=== PATIENT | female | born 1970 | race Caucasian/White ===

== ENCOUNTER 2019-10-16 10:15 | Emergency (ER) | payer MEDICAID ==
[~2019-10-16] VITALS: Ht 162.6 cm; Wt 97.3 kg
[2019-10-16 10:22] VITALS: BP 112/74
--- NOTE | 2019-10-16 10:27 | NUR ---
WAIT AT LOBBY.
--- NOTE | 2019-10-16 11:04 | NUR ---
Patient ambulated to bed 7. RN evaluating patient at bedside.
--- NOTE | 2019-10-16 11:30 | NUR ---
Dr. Granados is evaluating the patient at bedside.
[2019-10-16] MEDS ORDERED: HYDROcodone/APAP 5/325 MG 1 TAB TAB PO ONE (11:40)
[2019-10-16] MEDS ORDERED: ONDANSETRON 4 MG ODT PO ONE (11:40)
[2019-10-16 12:32] LABS: APPEARANCE,URINE SL CLOUDY (CLEAR); BILIRUBIN,URINE NEGATIVE (NEGATIVE); BLOOD, URINE TRACE-L (NEGATIVE); COLOR,URINE AMBER (YELLOW); LEUKOCYTE ESTERASE ,URINE NEGATIVE (NEGATIVE); NITRITE, URINE NEGATIVE (NEGATIVE); UGLUCOSE NEGATIVE (NEGATIVE)
[2019-10-16 12:39] LABS: BASOPHILS % (AUTO) 0.6 % (0.0-2.0); EOSINOPHILS # (AUTO) 0.1 K/uL (0-0.4); EOSINOPHILS % (AUTO) 1.5 % (0.0-4.0); HEMATOCRIT 37.7 % (36-48); HEMOGLOBIN 11.7 g/dL (12.0-16.0); LYMPHOCYTES # (AUTO) 2.4 K/uL (2.5-16.5); LYMPHOCYTES % (AUTO) 31.5 % (20.5-51.1); MEAN CORPUSCULAR HEMOGLOBIN 22 pg (27-31); MEAN CORPUSCULAR HGB CONC 31 g/dL (33-37); MEAN CORPUSCULAR VOLUME 71.3 fL (80-94); MONOCYTES # (AUTO) 0.5 K/uL (0.8-1.0); MONOCYTES % (AUTO) 6.1 % (1.7-9.3); NEUTROPHILS # (AUTO) 4.5 K/uL (1.8-7.7); NEUTROPHILS % (AUTO) 60.3 % (42.2-75.2); PLATELET COUNT (AUTO) 223 K/uL (140-450); RED BLOOD CELL COUNT(AUTO) 5.29 MIL/uL (4.20-5.40); RED CELL DISTRIBUTION WIDTH 17.5 % (11.6-13.7); WHITE BLOOD COUNT (AUTO) 7.5 K/uL (4.8-10.8)
[2019-10-16 12:56] LABS: ALBUMIN 3.4 g/dL (3.4-5.0); ANION GAP 10.2 (8-16); CARBON DIOXIDE 28.3 mmol/L (21-32); CREATININE 0.7 mg/dL (0.6-1.3); POTASSIUM 3.5 mmol/L (3.5-5.1); TOTAL BILIRUBIN 0.4 mg/dL (0.0-1.0)
[2019-10-16 13:32] LABS: RBC,URINE 0-5 /HPF (0-5); WBC,URINE 0-5 /HPF (0-5)
--- NOTE | 2019-10-16 13:44 | NUR ---
PT AMB TO RESTROOM WITH STEADY GAIT
--- NOTE | 2019-10-16 13:49 | NUR ---
SECOND URINE COLLECTED
--- NOTE | 2019-10-16 14:40 | NUR ---
Stable. VSS. Now denies pain. Ultrasound completed. Awaiting results.
--- NOTE | 2019-10-16 16:07 | NUR ---
IV removed, catheter intact and site benign. Applied folded 4x4 gauze and tape to stop bleeding.
[2019-10-16 16:08] VITALS: BP 119/70
--- NOTE | 2019-10-16 16:08 | NUR ---
Patient discharged with v/s stable. Written and verbal after care instructions given and explained. Patient alert, oriented and verbalized understanding of instructions. Ambulatory with steady gait. All questions addressed prior to discharge. ID band removed. Patient advised to follow up with PMD. Rx of NORCO ZOFRAN given. Patient educated on indication of medication including possible reaction and side effects. Opportunity to ask questions provided and answered.
== END 2019-10-16 16:08 | disposition home or self-care (01) ==
LOC: MED 10:15
DX: K80.20 Calculus of gallbladder without cholecystitis without obstruction (principal); Z88.1 Allergy status to other antibiotic agents
CPT/HCPCS: 36415; 76705; 80053; 81001; 81025; 83690; 85025; 87086; 99284; Q0092; Q0162

== ENCOUNTER 2022-09-06 18:06 | Emergency (ER) | payer OTHER ==
[~2022-09-06] VITALS: Ht 165.1 cm; Wt 101.6 kg
[2022-09-06 18:32] VITALS: BP 159/92
[2022-09-06 19:03] LABS: APPEARANCE,URINE CLEAR (CLEAR); BILIRUBIN,URINE NEGATIVE (NEGATIVE); BLOOD, URINE TRACE-I (NEGATIVE); COLOR,URINE YELLOW (YELLOW); LEUKOCYTE ESTERASE ,URINE NEGATIVE (NEGATIVE); NITRITE, URINE NEGATIVE (NEGATIVE); PH,URINE 6.5 (5.0-9.0); UGLUCOSE NEGATIVE (NEGATIVE)
[2022-09-06] MEDS ORDERED: KETOROLAC 30 MG/ML VIAL IVP ONE (19:15)
[2022-09-06] MEDS ORDERED: NACL 0.9% 1,000 ML IV SCH (19:15)
[2022-09-06] MEDS ORDERED: ONDANSETRON 4 MG/2 ML VIAL IVP ONE (19:15)
[2022-09-06 19:25] LABS: RBC,URINE 0-5 /HPF (0-5)
[2022-09-06 19:30] LABS: BASOPHILS % (AUTO) 0.3 % (0.0-2.0); EOSINOPHILS # (AUTO) 0.3 K/uL (0-0.4); EOSINOPHILS % (AUTO) 3.7 % (0.0-4.0); HEMATOCRIT 43.1 % (36-48); HEMOGLOBIN 14.2 g/dL (12.0-16.0); LYMPHOCYTES # (AUTO) 2.4 K/uL (2.5-16.5); LYMPHOCYTES % (AUTO) 26.3 % (20.5-51.1); MEAN CORPUSCULAR HEMOGLOBIN 28 pg (27-31); MEAN CORPUSCULAR HGB CONC 33 g/dL (33-37); MEAN CORPUSCULAR VOLUME 84.8 fL (80-94); MONOCYTES # (AUTO) 0.7 K/uL (0.8-1.0); MONOCYTES % (AUTO) 7.8 % (1.7-9.3); NEUTROPHILS # (AUTO) 5.6 K/uL (1.8-7.7); NEUTROPHILS % (AUTO) 61.9 % (42.2-75.2); PLATELET COUNT (AUTO) 219 K/uL (140-450); RED BLOOD CELL COUNT(AUTO) 5.09 MIL/uL (4.20-5.40); RED CELL DISTRIBUTION WIDTH 13.8 % (11.6-13.7); WHITE BLOOD COUNT (AUTO) 9.1 K/uL (4.8-10.8)
[2022-09-06 19:51] LABS: ALBUMIN 3.4 g/dL (3.4-5.0); ANION GAP 10.7 (8-16); CREATININE 0.7 mg/dL (0.6-1.3); POTASSIUM 3.7 mmol/L (3.5-5.1); TOTAL BILIRUBIN 0.4 mg/dL (0.0-1.0)
--- NOTE | 2022-09-06 19:52 | NUR ---
Patient A/Ox4, lying in bed, chest rise and fall symmetrical, no s/s of distress, patient on monitor.
[2022-09-06] MEDS ORDERED: METOCLOPRAMIDE 10 MG/2 ML INJ VIAL IVP ONE (20:40)
--- NOTE | 2022-09-06 21:45 | NUR ---
Patient A/Ox4, lying in bed, chest rise and fall symmetrical, no s/s of distress, patient on monitor.
--- NOTE | 2022-09-06 22:00 | NUR ---
Patient A/Ox4, lying in bed, chest rise and fall symmetrical, no s/s of distress, patient on monitor.
[2022-09-06] MEDS ORDERED: ONDA-188 PO (22:15)
[2022-09-06] MEDS ORDERED: LEVO750T75 PO (22:15)
[2022-09-06] MEDS ORDERED: IBUP-2218 PO (22:15)
[2022-09-06] MEDS ORDERED: levoFLOXacin 750 MG TAB PO ONE (22:20)
[2022-09-06 22:29] VITALS: BP 122/74
== END 2022-09-06 22:31 | disposition home or self-care (01) ==
LOC: MED 18:06
DX: R10.11 Right upper quadrant pain (principal); Z88.8 Allergy status to other drugs, medicaments and biological substances
CPT/HCPCS: 36415; 74176; 80053; 81001; 81025; 83690; 85025; 87086; 96361; 96374; 96375; 99284; J1885; J2405; J2765

== ENCOUNTER 2022-09-18 10:23 | Inpatient (IN) | payer OTHER ==
[~2022-09-18] VITALS: Ht 162.6 cm; Wt 97.5 kg
[~2022-09-18 10:23] MED LIST: IBUP-2218 PO; LEVO750T75 PO; ONDA-188 PO
[2022-09-18 10:27] VITALS: BP 126/78
--- NOTE | 2022-09-18 10:30 | NUR ---
52F PRESENTS TO ED WITH C/O LLQ ABD PAIN AND N/V SINCE THIS MORNING. PT REPORTS A CONSTANT, ACHING LIKE, 8/10 PAIN; 1 EPISODE OF VOMITING TODAY. PT REPORTS TAKING 600MG IBUPROFEN AT 0600 TODAY AND PAIN STARTED AT 0800. PT STATES SHE WAS SEEN 09/06/22 IN ED, DX WITH RIGHT INFECTED KIDNEY. PT DENIES DIARRHEA, FEVERS OR CHILLS.
[2022-09-18] MEDS ORDERED: KETOROLAC 15 MG/ML VIAL IM ONE (11:10)
[2022-09-18 11:13] LABS: BASOPHILS % (AUTO) 0.4 % (0.0-2.0); EOSINOPHILS # (AUTO) 0.2 K/uL (0-0.4); EOSINOPHILS % (AUTO) 2.4 % (0.0-4.0); HEMOGLOBIN 14.9 g/dL (12.0-16.0); LYMPHOCYTES # (AUTO) 1.2 K/uL (2.5-16.5); LYMPHOCYTES % (AUTO) 12.8 % (20.5-51.1); MEAN CORPUSCULAR HEMOGLOBIN 29 pg (27-31); MEAN CORPUSCULAR HGB CONC 34 g/dL (33-37); MEAN CORPUSCULAR VOLUME 84.5 fL (80-94); MONOCYTES # (AUTO) 0.7 K/uL (0.8-1.0); MONOCYTES % (AUTO) 6.8 % (1.7-9.3); NEUTROPHILS # (AUTO) 7.4 K/uL (1.8-7.7); NEUTROPHILS % (AUTO) 77.6 % (42.2-75.2); PLATELET COUNT (AUTO) 296 K/uL (140-450); RED CELL DISTRIBUTION WIDTH 13.8 % (11.6-13.7); WHITE BLOOD COUNT (AUTO) 9.6 K/uL (4.8-10.8)
[2022-09-18 11:15] LABS: APPEARANCE,URINE CLEAR (CLEAR); BILIRUBIN,URINE 2+ (NEGATIVE); BLOOD, URINE 1+ (NEGATIVE); COLOR,URINE YELLOW (YELLOW); LEUKOCYTE ESTERASE ,URINE NEGATIVE (NEGATIVE); NITRITE, URINE NEGATIVE (NEGATIVE); PH,URINE 5.5 (5.0-9.0); UGLUCOSE NEGATIVE (NEGATIVE)
--- NOTE | 2022-09-18 11:22 | NUR ---
PT TAKEN TO ULTRASOUND VIA W/C.
[2022-09-18 11:28] LABS: OTHER CASTS, URINE None Seen /LPF (None Seen); WBC,URINE 0-5 /HPF (0-5)
[2022-09-18 11:33] LABS: ALBUMIN 3.4 g/dL (3.4-5.0); ANION GAP 12.5 (8-16); CARBON DIOXIDE 28.3 mmol/L (21-32); POTASSIUM 3.8 mmol/L (3.5-5.1); TOTAL BILIRUBIN 2.5 mg/dL (0.0-1.0)
--- NOTE | 2022-09-18 13:21 | NUR ---
pt amb to ch c
[2022-09-18] MEDS ORDERED: MORPHINE SULFATE 4 MG/ML SYR IVP ONE (13:40)
--- NOTE | 2022-09-18 14:32 | NUR ---
PT AMB TO BED 2
--- NOTE | 2022-09-18 14:54 | NUR ---
PATIENT IN BED 2, PLACE IN A GOWN AND ON CULINARY MANAGER, MEDICATED WITH MORPHINE, AWAITING FOR BED ASSIGNMENT, NO ACUTE DISTRESS NOTED.
[2022-09-18] MEDS ORDERED: ACETAMINOPHEN 325 MG TAB PO PRN (15:20)
[2022-09-18] MEDS ORDERED: ONDANSETRON 4 MG/2 ML VIAL IVP PRN (15:20)
[2022-09-18] MEDS ORDERED: OMEP20EC11 PO (15:26)
[2022-09-18] MEDS: NACL 0.9% 1,000 ML IV SCH (16:06)
--- NOTE | 2022-09-18 19:55 | NUR ---
PT RESTING IN BED WITH HOB ELEVATED. PT IS A&OX4. PAIN LEVEL 6/10 SHARP. PAIN TO LUQ. SKIN WARM AND DRY AND INTACT. 20G TO L HAND. PT IS ADMITED IS A HOLD. RESP EVEN AND UNLABORED. BED AT LOWEST POSITION BED RAILS UP X2
--- NOTE | 2022-09-18 20:45 | NUR ---
REPORT GIVEN TO RAMO HARRINGTON. PT GOING TO 111A
--- NOTE | 2022-09-18 20:45 | NUR ---
RECEIVED TELEPHONE REPORT FROM ER NURSE
--- NOTE | 2022-09-18 20:49 | NUR ---
Patient will be admitted to care of . Admited to MED SURG. Will go to [id number]. Belongings list completed. Report to UVALDO HARRINGTON.
[2022-09-18 20:55] VITALS: BP 140/76
--- NOTE | 2022-09-18 20:55 | NUR ---
PT TRANSPORTED TO [facility] UNIT VIA GURNEY. PT A/A/O X4, ABLE TO COMMUNICATE NEEDS. RESPIRATIONS EVEN AND UNLABORED ON RA. NO DISTRESS NOTED. AMBULATORY. V/S AND MRSA SWAB TAKEN. PT ON NPO. PT AWARE. SIGNS PLACED AT THE PT'S ROOM DOOR. IV SITE ON LH 20G,IVF RESUMED. SKIN INTACT, WARM AND DRY TO TOUCH. PT ORIENTED TO ROOM, UNIT AND ROUTINE. CALL LIGHT WITHIN REACH. SAFETY PRECAUTIONS IN PLACE.
--- NOTE | 2022-09-18 21:00 | NUR ---
PATIENT PLAN OF CARE DISCUSSED AND REVIEWED WITH KERA SHAIKH.
--- NOTE | 2022-09-18 21:50 | NUR ---
PT OUT TO NUCLEAR MED FOR HIDA SCAN. PT IS IN STABLE CONDITION.
[2022-09-18] MEDS: MORPHINE SULFATE 2 MG/ML SYR IVP PRN (22:57)
--- NOTE | 2022-09-18 23:18 | NUR ---
PT BACK FROM [facility].
[2022-09-19] MEDS: NACL 0.9% 1,000 ML IV SCH ×3 (01:20→16:03)
[2022-09-19 04:00] VITALS: BP 140/70
--- NOTE | 2022-09-19 05:59 | NUR ---
V/S TAKEN. STABLE. PT RESTING WELL IN HER BED. NO DISTRESS NOTED. SAFETY PRECAUTIONS IN PLACE.
--- NOTE | 2022-09-19 07:09 | NUR ---
ENDORSED PT TO DAY SHIFT NURSE WILLIAM FOR CONTINUITY OF CARE. ALL NEEDS MET THROUGHOUT SHIFT. PT IS STABLE.
[2022-09-19 07:31] LABS: BASOPHILS # (AUTO) 0.1 K/uL (0.00-0.22); BASOPHILS % (AUTO) 0.5 % (0.0-2.0); EOSINOPHILS # (AUTO) 0.2 K/uL (0-0.4); EOSINOPHILS % (AUTO) 1.6 % (0.0-4.0); HEMATOCRIT 40.4 % (36-48); LYMPHOCYTES # (AUTO) 1.1 K/uL (2.5-16.5); LYMPHOCYTES % (AUTO) 8.8 % (20.5-51.1); MEAN CORPUSCULAR HEMOGLOBIN 29 pg (27-31); MEAN CORPUSCULAR HGB CONC 35 g/dL (33-37); MEAN CORPUSCULAR VOLUME 81.8 fL (80-94); MONOCYTES # (AUTO) 0.7 K/uL (0.8-1.0); MONOCYTES % (AUTO) 5.8 % (1.7-9.3); NEUTROPHILS # (AUTO) 10.4 K/uL (1.8-7.7); NEUTROPHILS % (AUTO) 83.3 % (42.2-75.2); PLATELET COUNT (AUTO) 256 K/uL (140-450); RED BLOOD CELL COUNT(AUTO) 4.94 MIL/uL (4.20-5.40); RED CELL DISTRIBUTION WIDTH 13.5 % (11.6-13.7); WHITE BLOOD COUNT (AUTO) 12.5 K/uL (4.8-10.8)
[2022-09-19 07:43] LABS: ALBUMIN 3.4 g/dL (3.4-5.0); ANION GAP 14.8 (8-16); CARBON DIOXIDE 24.6 mmol/L (21-32); CREATININE 0.5 mg/dL (0.6-1.3); MAGNESIUM 2.1 mg/dL (1.8-2.4); POTASSIUM 3.4 mmol/L (3.5-5.1); TOTAL BILIRUBIN 3.5 mg/dL (0.0-1.0)
[2022-09-19 08:00] VITALS: BP 125/68
--- NOTE | 2022-09-19 09:51 | NUR ---
PATIENT HAS BEEN SCREENED AND CATEGORIZED MODERATE NUTRITION RISK. PATIENT WILL BE SEEN WITHIN 3-5 DAYS OF ADMISSION. REVIEWED BY RACH LAI RD
--- NOTE | 2022-09-19 15:00 | NUR ---
DISCHARGE PLANNING PATIENT IS A 52 YEAR OLD FEMALE ADMITTED IN THE [facility]/ED ON 09/18/2022 DUE TO CHOLELITHIASIS. SW MEET WITH PATIENT AT BEDSIDE TO DISCUSS AND GATHER PATIENT'S COLLATERAL INFORMATION. PATIENT WAS AWAKE AN ALERT ABLE TO PROVIDE HER OWN INF. DURING THE MEETING WITH SW. PATIENT REPORTED THAT SHE LIVES HOME WITH HER FAMILY, PATIENT LIVES WITH HER AND ADULT SONS AND DAUGHTERS IN THEIR HOME IN [facility]. PER PATIENT HE HAS GOOD FAMILY SUPPORT. SHE REPORTED THAT SHE DO NOT HAVE A.D. AND DECLINED ALL FORMS PROVIDED BY [facility]. PATIENT REPORTED THAT HER EMILY [phone] IS HER EMERGENCY CONTACT AND HER MEDICAL DECISION MAKER. PATIENT REPORTED HAVING DR. FRENCH LEONARDO HER PCP AND HER LAST VISIT WITH HIM WAS ON 09/11/2022. SW EXPLAINED TO PATIENT ABOUT THE IMPORTANCE OF MAKING A FOLLOW UP APPOINTMENT WITH PCP WITHIN 5-7 DAYS AFTER HER DISCHARGE. PATIENT AGREED AND REPORTED THAT SHE WILL DO IT HER SELF AND DECLINED FOR SW TO DO HER APPOINTMENT. PER PATIENT SHE HAS NO ISSUES WITH TAKING OR GETTING MEDICATIONS FROM HER PHARMACY AT [facility]. PER PATIENT SHE HAS NO DME AT HOME. PATIENT REPORTED THAT SHE WANTS TO GO HOME WHEN SHE IS READY AND STABLE FOR DISCHARGE; HOWEVER IS OPEN FOR MD. RECOMMENDATIONS TO HOME HEALTH ONLY NO PREFERENCE SW/BALDEV WILL FOLLOW UP NEEDED.
[2022-09-19 16:00] VITALS: BP 143/85
[2022-09-19] MEDS: MORPHINE SULFATE 2 MG/ML SYR IVP PRN (16:07)
[2022-09-19] MEDS: PIPERACILLIN/TAZOBACTAM 4.5 GM in DEXTROSE 5% 100 ML IV SCH ×2 (18:00→23:04)
--- NOTE | 2022-09-19 19:15 | NUR ---
RECEIVED PT FROM MORNING SHIFT NURSE. PT IS AOX4, AMBULATORY, NEEDS TO VERBALIZE NEEDS AND ABLE TO FOLLOW COMMANDS. PT IS ON ROOM ARE AND NPO. PT HAS IV ON RIGHT AC GAUGE 22 RUNNING WITH NS AT 100ML/HR. PT SKIN IS INTACT. PT DENIES PAIN AT THIS TIME. NO S/S OF RESPIRATORY DISTRESS NOTED. ALL SAFETY MEASURES IMPLEMENTED. BED IN LOW POSITION, BED WHEELS ON LOCKED AND CALL LIGHT WITHIN REACH.
--- NOTE | 2022-09-19 21:05 | NUR ---
RECEIVED CALL FROM DR. FUENTES. HE ORDER CBC, COMPLETE METABOLIC PANEL, AND LIPASE FOR THE PT AT 5AM RENAN STAT. ORDER WAS MADE AND CARRIED OUT.
--- NOTE | 2022-09-19 22:00 | NUR ---
RECEIVED CALL FROM DR. LAI. HE ORDER EKG AND TEST FOR THE PT. ORDER WAS ORDER AND CARRIED OUT.
--- NOTE | 2022-09-19 22:39 | NUR ---
NOTIFIED DR. RESENDIZ REGARDING PT'S POTASSIUM LEVEL OF 3.4 DR. RESENDIZ ORDERED 40 MEQ KCL IV. ORDER WAS MADE AND CARRIED OUT.
[2022-09-19] MEDS ORDERED: KCL 20 MEQ/WATER INJ PREMIX 200 ML IV SCH (22:45)
--- NOTE | 2022-09-19 23:04 | NUR ---
SCHEDULED MEDICATION WAS GIVEN TO PT PER MD ORDER. ALL SAFETY MEASURES IMPLEMENTED. BED IN LOW POSITION, BED WHEELS ON LOCKED AND CALL LIGHT WITHIN REACH.
--- NOTE | 2022-09-20 00:08 | NUR ---
40MEQ KCL IV WAS GIVEN TO PT PER MD ORDER. ALL SAFETY MEASURES IMPLEMENTED. BED IN LOW POSITION, BED WHEELS ON LOCKED AND CALL LIGHT WITHIN REACH.
--- NOTE | 2022-09-20 02:00 | NUR ---
PT IS SLEEPING. CHEST RISE AND FALL SYMMETRICALLY NOTED. RESPIRATION IS EVEN AND UNLABORED. ALL SAFETY MEASURES IMPLEMENTED. BED IN LOW POSITION, BED WHEELS ON LOCKED AND CALL LIGHT WITHIN REACH.
[2022-09-20 03:44] LABS: BASOPHILS # (AUTO) 0.1 K/uL (0.00-0.22); BASOPHILS % (AUTO) 0.6 % (0.0-2.0); EOSINOPHILS # (AUTO) 0.2 K/uL (0-0.4); EOSINOPHILS % (AUTO) 1.1 % (0.0-4.0); HEMATOCRIT 36.3 % (36-48); HEMOGLOBIN 12.6 g/dL (12.0-16.0); LYMPHOCYTES # (AUTO) 2.1 K/uL (2.5-16.5); LYMPHOCYTES % (AUTO) 13.8 % (20.5-51.1); MEAN CORPUSCULAR HEMOGLOBIN 28 pg (27-31); MEAN CORPUSCULAR HGB CONC 35 g/dL (33-37); MONOCYTES # (AUTO) 1.3 K/uL (0.8-1.0); MONOCYTES % (AUTO) 8.3 % (1.7-9.3); NEUTROPHILS # (AUTO) 11.6 K/uL (1.8-7.7); NEUTROPHILS % (AUTO) 76.2 % (42.2-75.2); PLATELET COUNT (AUTO) 236 K/uL (140-450); RED BLOOD CELL COUNT(AUTO) 4.43 MIL/uL (4.20-5.40); RED CELL DISTRIBUTION WIDTH 13.8 % (11.6-13.7); WHITE BLOOD COUNT (AUTO) 15.2 K/uL (4.8-10.8)
[2022-09-20 04:00] VITALS: BP 130/63
[2022-09-20 04:04] LABS: PROTHROMBIN TIME 11.6 secs (10.8-13.4)
[2022-09-20 04:29] LABS: ANION GAP 12.7 (8-16); CARBON DIOXIDE 24.7 mmol/L (21-32); CREATININE 0.7 mg/dL (0.6-1.3); POTASSIUM 3.4 mmol/L (3.5-5.1); TOTAL BILIRUBIN 2.1 mg/dL (0.0-1.0)
[2022-09-20] MEDS: PIPERACILLIN/TAZOBACTAM 4.5 GM in DEXTROSE 5% 100 ML IV SCH ×4 (05:02→23:31)
--- NOTE | 2022-09-20 05:02 | NUR ---
SCHEDULED AND PRESCRIBED MEDICATION WAS GIVEN TO PT PER MD ORDER. ALL SAFETY MEASURES IMPLEMENTED. BED IN LOW POSITION, BED WHEELS ON LOCK AND CALL LIGHT WITHIN REACH.
[2022-09-20] MEDS: NACL 0.9% 1,000 ML IV SCH ×2 (06:45→18:13)
--- NOTE | 2022-09-20 07:30 | NUR ---
PT IS STABLE. ENDORSED PT TO MORNING SHIFT NURSE FOR CONTINUITY OF CARE.
--- NOTE | 2022-09-20 07:31 | NUR ---
RECEIVED REPORT FROM CIVIL DRAFTING TECHNICIAN NURSE FOR CONTINUITY OF PATIENT CARE. PT IN BED ALERT AND ORIENTED X4. PT WAS GETTING DRESSED TO GO TO OR. OR NURSE AT BEDSIDE. PT OFF UNIT TO OR.
[2022-09-20] MEDS ORDERED: BUPIVACAINE-MPF/EPI 0.25% 10 ML VIAL INJ ONE (07:37)
[2022-09-20] MEDS ORDERED: LIDOCAINE MPF 1% 20 ML ONE (07:38)
[2022-09-20] MEDS ORDERED: fentaNYL citrate 0.05 MG/ML VIAL ONE ×2 (08:13→09:18)
[2022-09-20] MEDS ORDERED: SUCCINYLCHOLINE CHLORIDE 200 MG/10 ML VIAL IVP ONE (08:55)
[2022-09-20] MEDS ORDERED: PROPOFOL 200 MG/20 ML VIAL IV ONE ×2 (08:55)
[2022-09-20] MEDS ORDERED: ONDANSETRON 4 MG/2 ML VIAL ONE (08:56)
[2022-09-20] MEDS ORDERED: KETOROLAC 30 MG/ML VIAL ONE (08:56)
[2022-09-20] MEDS ORDERED: ROCURONIUM 50 MG/5 ML VIAL IV ONE ×2 (09:19)
[2022-09-20] MEDS ORDERED: NEOSTIGMINE 1:1000 10 MG/10 ML VIAL ONE ×2 (11:06)
[2022-09-20] MEDS ORDERED: GLYCOPYRROLATE 0.2 MG/ML VIAL ONE ×5 (11:07)
[2022-09-20] MEDS ORDERED: MORPHINE SULFATE 4 MG/ML SYR IV PRN (11:10)
[2022-09-20] MEDS: DEXT 5% /NACL 0.9% 1,000 ML IV SCH (11:10)
[2022-09-20] MEDS ORDERED: ONDANSETRON 4 MG/2 ML VIAL IV PRN (11:10)
[2022-09-20] MEDS ORDERED: MORPHINE SULFATE 2 MG/ML SYR IVP PRN (11:10)
[2022-09-20] MEDS ORDERED: HYDROmorphone 1 MG/ML AMP IVP PRN ×3 (11:10→12:20)
[2022-09-20] MEDS: HYDROmorphone PFS 2 MG/ML SYR ONE ×3 (11:50→12:10)
[2022-09-20] MEDS ORDERED: METOCLOPRAMIDE 10 MG/2 ML INJ VIAL IVP PRN (12:15)
[2022-09-20] MEDS ORDERED: hydrALAZINE 20 MG/ML VIAL IVP PRN (12:16)
[2022-09-20] MEDS ORDERED: LABETALOL 20 MG/4 ML VIAL IVP PRN (12:16)
[2022-09-20] MEDS ORDERED: LACTATED RINGERS 1,000 ML IV SCH (12:20)
--- NOTE | 2022-09-20 19:30 | NUR ---
RECEIVED PATIENT LYING ON THE BED, PATIENT IS AWAKE, ALERT AND ORIENTED, PATIENT HAS IV ACCESS SITE ON RIGHT AC G22, RUNNING NS @100 ML/HR, HAS JENNIFER DRAIN, DRESSING CDI. CALL LIGHT WITHIN REACH.
[2022-09-20 20:00] VITALS: BP 121/67
--- NOTE | 2022-09-20 23:35 | NUR ---
SCHEDULED ZOSYN GIVEN ORDERED, NO SIGNS OF DISTRESS NOTED, PATIENT DENIES PAIN. CALL LIGHT WITHIN REACH. SAFETY MEASURES MAINTAINED. WILL CONTINUE TO MONITOR THE PATIENT.
[2022-09-21] VITALS: BP 115/64
--- NOTE | 2022-09-21 00:30 | NUR ---
VITALS TAKEN T 99.5, P 105, BP 115/64, RESP 18 AND 02 SATS @91% ON ROOM AIR, PATIENT DENIES SOB, DENIES PAIN, BREATHING EVEN AND NON LABORED. CALL LIGHT WITHIN REACH. WILL CONTINUE TO MONITOR THE PATIENT.
[2022-09-21] MEDS: DEXT 5% /NACL 0.9% 1,000 ML IV SCH ×2 (01:37→15:25)
--- NOTE | 2022-09-21 02:03 | NUR ---
CHECK ON PATIENT. PATIENT IS ASLEEP, NO SIGNS OF PAIN/DISCOMFORT NOTED, BREATHING EVEN AND NON LABORED. CALL LIGHT WITHIN REACH.
[2022-09-21] MEDS: NACL 0.9% 1,000 ML IV SCH (03:20)
--- NOTE | 2022-09-21 04:10 | NUR ---
JENNIFER DRAIN EMPTIED, 20ML OF SERO SANGUINOUS FLUID, PATIENT IS ASLEEP, NO SIGNS OF PAIN NOTED, BREATHING EVEN AND NON LABORED, CALL LIGHT WITHIN REACH. WILL CONTINUE TO MONITOR THE PATIENT.
[2022-09-21] MEDS: PIPERACILLIN/TAZOBACTAM 4.5 GM in DEXTROSE 5% 100 ML IV SCH ×4 (05:23→23:35)
--- NOTE | 2022-09-21 05:25 | NUR ---
SCHEDULED MEDICATION GIVEN ORDERED, PATIENT IS AWAKE, DENIES PAIN, NO S/S OF DISTRESS NOTED. CALL LIGHT WITHIN REACH. ALL SAFETY MEASURES IN PLACE.
[2022-09-21 07:00] LABS: BASOPHILS # (AUTO) 0.1 K/uL (0.00-0.22); BASOPHILS % (AUTO) 0.4 % (0.0-2.0); EOSINOPHILS % (AUTO) 0.2 % (0.0-4.0); HEMATOCRIT 32.9 % (36-48); HEMOGLOBIN 11.4 g/dL (12.0-16.0); LYMPHOCYTES # (AUTO) 1.8 K/uL (2.5-16.5); LYMPHOCYTES % (AUTO) 11.3 % (20.5-51.1); MEAN CORPUSCULAR HEMOGLOBIN 28 pg (27-31); MEAN CORPUSCULAR HGB CONC 35 g/dL (33-37); MEAN CORPUSCULAR VOLUME 81.5 fL (80-94); MONOCYTES # (AUTO) 1.1 K/uL (0.8-1.0); MONOCYTES % (AUTO) 6.9 % (1.7-9.3); NEUTROPHILS # (AUTO) 13.1 K/uL (1.8-7.7); NEUTROPHILS % (AUTO) 81.2 % (42.2-75.2); PLATELET COUNT (AUTO) 222 K/uL (140-450); RED BLOOD CELL COUNT(AUTO) 4.04 MIL/uL (4.20-5.40); RED CELL DISTRIBUTION WIDTH 13.8 % (11.6-13.7); WHITE BLOOD COUNT (AUTO) 16.1 K/uL (4.8-10.8)
--- NOTE | 2022-09-21 07:26 | NUR ---
ENDORSED PATIENT TO DAY NURSE FOR CONTINUITY OF CARE. NEEDS MET THROUGHOUT THE SHIFT. PATIENT IN STABLE CONDITION.
[2022-09-21 07:46] LABS: ALBUMIN 2.5 g/dL (3.4-5.0); ANION GAP 9.1 (8-16); CARBON DIOXIDE 27.9 mmol/L (21-32); CREATININE 0.6 mg/dL (0.6-1.3); TOTAL BILIRUBIN 1.4 mg/dL (0.0-1.0)
[2022-09-21 08:00] VITALS: BP 105/65
[2022-09-21] MEDS: POTASSIUM CHLORIDE 10 MEQ TABER PO PRN (12:44)
[2022-09-21] MEDS: HYDROcodone/APAP 5/325 MG 1 TAB TAB PO PRN (15:25)
--- NOTE | 2022-09-21 18:35 | NUR ---
RIGHT AC IV INFILTRATED. REMOVED AND CATH IN PLACE. NEW IV INSERTED TO RIGHT HAND 22G, PATENT AND INTACT. PT REMAINED STABLE, ALL NEEDS CURRENTLY BEING MEET.
--- NOTE | 2022-09-21 19:40 | NUR ---
RECEIVED PATIENT LYING ON THE BED, IS AWAKE, ALERT AND ORIENTED, DENIES PAIN, DENIES SOB. FAMILY AT BEDSIDE. IV ACCESS SITE ON R HAND G 22, PATENT AND INTACT, FLUSH WITHOUT RESISTANCE. CALL LIGHT WITHIN REACH.
[2022-09-21 20:00] VITALS: BP 114/71
--- NOTE | 2022-09-21 21:57 | NUR ---
CHECK ON PATIENT. PATIENT IS LYING ON THE BED, AWAKE, DENIES PAIN, NO SIGNS OF DISTRESS NOTED. PATIENT HAS JENNIFER DRAIN, PATENT, DRESSING INTACT AND DRY. PATIENT HAS BOB CATHETER DRAINING CLEAR URINE TO BAG. CALL LIGHT WITHIN REACH.
--- NOTE | 2022-09-21 23:35 | NUR ---
SCHEDULED ZOSYN GIVEN ORDERED. PATIENT IS AWAKE, DENIES PAIN, NO SIGNS OF DISTRESS NOTED. CALL LIGHT WITHIN REACH.
--- NOTE | 2022-09-22 01:22 | NUR ---
CHECK ON PATIENT, PATIENT IS ASLEEP, BREATHING EVEN AND NON LABORED ON ROOM AIR. CALL LIGHT WITHIN REACH. SAFETY MEASURES IN PLACE.
[2022-09-22 04:00] VITALS: BP 112/64
--- NOTE | 2022-09-22 04:25 | NUR ---
PATIENT IS AWAKE, EMPTIED JENNIFER DRAIN 30ML OF SERO SANGUINOUS FLUID, DRESSING CDI. CALL LIGHT WITHIN REACH.
[2022-09-22] MEDS: PIPERACILLIN/TAZOBACTAM 4.5 GM in DEXTROSE 5% 100 ML IV SCH ×2 (05:18→12:32)
[2022-09-22] MEDS: DEXT 5% /NACL 0.9% 1,000 ML IV SCH (05:50)
[2022-09-22 07:02] LABS: BASOPHILS # (AUTO) 0.1 K/uL (0.00-0.22); BASOPHILS % (AUTO) 0.4 % (0.0-2.0); EOSINOPHILS # (AUTO) 0.2 K/uL (0-0.4); HEMOGLOBIN 11.1 g/dL (12.0-16.0); LYMPHOCYTES # (AUTO) 1.8 K/uL (2.5-16.5); LYMPHOCYTES % (AUTO) 14.7 % (20.5-51.1); MEAN CORPUSCULAR HEMOGLOBIN 28 pg (27-31); MEAN CORPUSCULAR HGB CONC 35 g/dL (33-37); MEAN CORPUSCULAR VOLUME 81.9 fL (80-94); MONOCYTES # (AUTO) 0.9 K/uL (0.8-1.0); MONOCYTES % (AUTO) 7.5 % (1.7-9.3); NEUTROPHILS # (AUTO) 9.2 K/uL (1.8-7.7); NEUTROPHILS % (AUTO) 75.4 % (42.2-75.2); PLATELET COUNT (AUTO) 226 K/uL (140-450); RED BLOOD CELL COUNT(AUTO) 3.91 MIL/uL (4.20-5.40); RED CELL DISTRIBUTION WIDTH 13.6 % (11.6-13.7); WHITE BLOOD COUNT (AUTO) 12.2 K/uL (4.8-10.8)
--- NOTE | 2022-09-22 07:05 | NUR ---
ENDORSED PATIENT TO DAY NURSE VICENTE FOR CONTINUITY OF CARE. NEEDS MET THROUGHOUT THE SHIFT. PATIENT IN STABLE CONDITION.
[2022-09-22 07:10] LABS: ALBUMIN 2.5 g/dL (3.4-5.0); CREATININE 0.5 mg/dL (0.6-1.3); TOTAL BILIRUBIN 0.8 mg/dL (0.0-1.0)
--- NOTE | 2022-09-22 07:26 | NUR ---
PT HAS BEEN ENDORSED BY CREDIT REVIEW OFFICER NURSE FOR CONTINUITY OF CARE, ALL NIGHT EVENTS DISCUSSED. POC DISCUSSED. PT IS SLEEPING IN BED WITH CHEST RISING AND FALLING EVEN AND UNLABORED. ALL SAFETY MEASURES IN PLACE, CALL LIGHT WITHIN REACH. WILL CONTINUE TO MONITOR.
[2022-09-22 08:00] VITALS: BP 123/74
[2022-09-22] MEDS ORDERED: ENOXAPARIN 40 MG/0.4 ML SYR SUBQ SCH (09:00)
--- NOTE | 2022-09-22 09:00 | NUR ---
RITU MEDICATION ADMINISTERED PER MD ORDER, PT TOLERATED ADMINISTRATION. ALL SAFETY MEASURES IN PLACE, CALL LIGHT WITHIN REACH. WILL CONTINUE TO MONITOR. RATES PAIN 3/10 TOLERABLE.
[2022-09-22] MEDS: HYDROcodone/APAP 5/325 MG 1 TAB TAB PO PRN (12:32)
--- NOTE | 2022-09-22 12:32 | NUR ---
PRN PAIN MEDICATION ADMINISTERED PER MD ORDER, PT TOLERATED ADMINISTRATION. VSS PRIOR TO ADMINISTRATION. EDUCATION PROVIDED. NEW IV FLUIDS AND IV ABX HUNG. RIGHT HAND IV REMOVED DUE TO HIGH PRESSURE, NEW IV STARTED TO LEFT FOREARM 20G, PATENT AND INTACT. PT PLACED ON SIDE OF THE BED TO EAT LUNCH, FAMILY AT BEDSIDE. ALL NEEDS MET
[2022-09-22] MEDS: POTASSIUM CHLORIDE 10 MEQ TABER PO PRN (12:57)
--- NOTE | 2022-09-22 13:44 | NUR ---
PRN POTASSIUM REPLACED. ORDER FOR BOB CATH REMOVAL, BOB REMOVED AND INTACT. PT TOLERATED. ALL SAFETY MEASURES IN PLACE, CALL LIGHT WITHIN REACH. WILL CONTINUE TO MONITOR.
--- NOTE | 2022-09-22 14:57 | NUR ---
P.T. NOTES P.T. EVAL COMPLETED; REFER TO EVAL FOR DETAILS.
--- NOTE | 2022-09-22 15:57 | NUR ---
PATIENT DOING GOOD AT BEDSIDE, PHYSICAL THERAPIST VISITED THE PATIENT,ALL NEEDS ARE CURRENTLY MET,ALL SAFETY MEASURES IN PLACE.WILL CONTINUE TO MONITOR
--- NOTE | 2022-09-22 16:18 | NUR ---
09/22/22 RD INITIAL ASSESSMENT COMPLETED PLEASE REFER TO NUTRITION ASSESSMENT UNDER CARE ACTIVITY FOR ESTIMATED NUTRITIONAL NEEDS. 1. CONTINUE CLEAR LIQUID DIET PER MD 2. RECOMMEND ENSURE CLEAR 1XDAY TO OPTIMIZE NUTRITIONAL NEEDS - PROVIDES 240 KCAL AND 8 GM PROTEIN DAILY 3. WHEN/IF DIET READY TO BE ADVANCED, RECOMMEND LOW FAT DIET TOLERATED PER S/P CHOLECYSTECTOMY 4. RD TO FOLLOW-UP 7 DAYS, LOW RISK REVIEWED BY RACH LAI RD
[2022-09-22 16:19] VITALS: BP 123/74
--- NOTE | 2022-09-22 17:51 | NUR ---
PT HAS BEEN PROVIDED WITH FULL DISCHARGE INSTRUCTIONS, DEMONSTRATION AND TEACH BACK HAS BEEN COMPLETED REGARDING JENNIFER DRAIN. ALL QUESTIONS HAVE BEEN ASKED, SUPPLIES HAVE BEEN PROVIDED. ALL MEDICATION HAS BEEN DISCUSSED AND PRESCRIPTION HAS BEEN GIVEN TO PT. PT IV HAS BEEN REMOVED, CATH IN PLACE. PT ABLE TO DRESS SELF. AT BEDSIDE. ALL BELONGINGS IN POSSESION, ALL PAPERWORK SIGNED. VSS. PT WHEELCHAIRED OUT IN STABLE CONDITION. ALL SAFETY MEASURES IN PLACE.
== END 2022-09-22 18:15 | disposition home or self-care (01) | DRG 263 ==
LOC: MED 10:23 → MMU 16:56 → MTU 20:30
PROVIDERS: ADMIT Internal Medicine; ATTEND Internal Medicine
PROC: 0FT40ZZ Resection of Gallbladder, Open Approach (ICD-10-PCS; principal; 2022-09-22)
PROC: 0FJ44ZZ Inspection of Gallbladder, Percutaneous Endoscopic Approach (ICD-10-PCS; 2022-09-22)
PROC: 0DNU0ZZ Release Omentum, Open Approach (ICD-10-PCS; 2022-09-22)
PROC: 0W9G0ZZ Drainage of Peritoneal Cavity, Open Approach (ICD-10-PCS; 2022-09-22)
DX: K80.01 Calculus of gallbladder with acute cholecystitis with obstruction (principal); K65.3 Choleperitonitis; K82.A1 Gangrene of gallbladder in cholecystitis; D62 Acute posthemorrhagic anemia; K76.0 Fatty (change of) liver, not elsewhere classified; E80.6 Other disorders of bilirubin metabolism; E66.9 Obesity, unspecified; Z20.822 Contact with and (suspected) exposure to COVID-19; R74.01 Elevation of levels of liver transaminase levels; Z88.1 Allergy status to other antibiotic agents; Z79.899 Other long term (current) drug therapy; Z79.1 Long term (current) use of non-steroidal anti-inflammatories (NSAID); Z53.31 Laparoscopic surgical procedure converted to open procedure; Z68.36 Body mass index [BMI] 36.0-36.9, adult
CPT/HCPCS: 36415; 74150; 76705; 78445; 80053; 81001; 81025; 82374; 83690; 83735; 85025; 85610; 85730; 86886; 86900; 86901; 87070; 87075; 87086; 87205; 88304; 96372; 96374; 97116; 97163-GP; 99285; A9510; J0330; J1170; J1650; J1885; J2001; J2270; J2405; J2543; J2704; J2710; J3010; J3480; J3490; J7030; J7060; Q0092

== ENCOUNTER 2022-09-24 16:12 | Emergency (ER) | payer OTHER ==
[~2022-09-24] VITALS: Ht 162.6 cm; Wt 96.6 kg
[~2022-09-24 16:12] MED LIST changes: -LEVO750T75 PO; +OMEP20EC11 PO
[2022-09-24 16:17] VITALS: BP 117/66
--- NOTE | 2022-09-24 16:53 | NUR ---
PA w pt at this time, o2 sat 98% ra, sr up times 2
[2022-09-24] MEDS ORDERED: PROM118S5 PO (17:01)
--- NOTE | 2022-09-24 17:20 | NUR ---
Patient discharged with v/s stable. Written and verbal after care instructions ABOUT UPPER RESPIRATORY INFECTION given and explained. Patient alert, oriented and verbalized understanding of instructions. Ambulatory with steady gait. All questions addressed prior to discharge. ID band removed. Patient advised to follow up with PMD. Rx of PROMETHAZINE DM given. Patient educated on indication of medication including possible reaction and side effects. Opportunity to ask questions provided and answered.
== END 2022-09-24 17:20 | disposition home or self-care (01) ==
LOC: MED 16:12
DX: J06.9 Acute upper respiratory infection, unspecified (principal); Z20.822 Contact with and (suspected) exposure to COVID-19; F12.90 Cannabis use, unspecified, uncomplicated; Z88.1 Allergy status to other antibiotic agents; Z90.49 Acquired absence of other specified parts of digestive tract; Z79.899 Other long term (current) drug therapy
CPT/HCPCS: 99283